=== PATIENT | male | born 1985 | race African-American/Black ===

== ENCOUNTER → 2020-06-06 | Outpatient (CLI) | payer MEDICAID ==
[~2020-06-06] MED LIST: CONTRAST GIVEN. MC PRN; IOHEXOL 240 MG/ML 50ML VIAL. PO ONE; IOHEXOL 300 MG/ML 100ML VIAL. IV ONE
--- NOTE | 2020-06-06 14:54 | RAD ---
INDICATION: Reason: ABNORMAL BILIRUBIN TEST, ABDOMEN PAIN, WEIGHT LOSS / Spl. Instructions: IV OMNI 300 75 MLS AND PO OMNI 240 30 MLS / History: COMPARISON: None. TECHNIQUE: Axial CT images obtained through the abdomen and pelvis with contrast. One or more of the following individualized dose reduction techniques were utilized for this examination: 1. Automated exposure control; 2. Adjustment of the mA and/or kV according to patient size; 3. Use of iterative reconstruction technique. FINDINGS: Scoliotic curvature of the spine. Abdominal aorta is nonaneurysmal. A 7 mm low-density lesion within the liver. 2 small to characterize on this exam. No peripancreatic fluid collection. Spleen unremarkable. No hydronephrosis. Urinary bladder has minimal urine within it with wall thickening. Large amount of stool throughout the colon. Colon is distended. There is some high density seen in the left gluteal region The suspected appendix is air-filled without definite adjacent inflammatory changes. IMPRESSION: * Large amount of stool throughout the colon which appears distended. This can be seen with constipation. * Severe scoliotic curvature of the spine. * There is a suspected low-density lesion of the liver which is too small to characterize but typically benign in a patient of this age unless they have known history of neoplasm. * At the left gluteal region there is some high density seen. Could either be secondary to calcifications or contrast within vessels within the region. Electronically signed by: Lam Segal MD (06/06/2020 2:51 PM) [id number]
== END | disposition home or self-care (01) ==
LOC: CT 11:12
PROVIDERS: ATTEND Family Medicine
DX: E80.6 Other disorders of bilirubin metabolism (principal); M41.9 Scoliosis, unspecified; K63.89 Other specified diseases of intestine
CPT/HCPCS: 74177; Q9966; Q9967